=== PATIENT | male | born 1990 | race Caucasian/White ===

== ENCOUNTER 2019-01-31 15:38 | Emergency (ER) | payer OTHER ==
[~2019-01-31] VITALS: Ht 180.3 cm; Wt 109.0 kg
[2019-01-31] MEDS ORDERED: SODIUM CHLORIDE 0.9% 1,000 ML IV ONE (16:05)
[2019-01-31] MEDS ORDERED: OLANZAPINE 10 MG/VIAL IM ONE (16:15)
[2019-01-31] MEDS ORDERED: LORAZEPAM 2MG/ML CPJ IM ONE (16:15)
[2019-01-31 16:45] LABS: BASOPHILS % 0.4 % (0.0-2.0); EOSINOPHILS % 0.9 % (0.0-5.0); HEMATOCRIT. 42.5 % (42.0-52.0); HEMOGLOBIN. 14.2 g/dL (14.0-18.0); LYMPHOCYTES % 13.1 % (20.0-50.0); MEAN CORPUSCULAR HEMOGLOBIN 29.3 pg (28.0-32.0); MEAN CORPUSCULAR VOLUME 87.8 fL (80.0-94.0); MONOCYTES % 7.5 % (2.0-8.0); NEUTROPHILS % 78.1 % (40.0-76.0); PLATELET 327 x1000/uL (130-400); RED BLOOD CELL COUNT 4.84 mill/uL (4.7-6.1); RED CELL DISTRIBUTION WIDTH 14.7 % (11.6-14.6)
[2019-01-31 16:48] LABS: CHLORIDE 103 mEq/L (98-107)
[2019-01-31 16:51] LABS: ETHANOL BLOOD 58 mg/dL
[2019-01-31] MEDS ORDERED: FOLIC ACID 1 MG, THIAMINE HCL 100 MG, MVI, ADULT NO.1 10 ML in DEXTROSE 5% WATER 1,000 ML IV ONE ×4 (17:45)
[2019-01-31 22:16] LABS: METHADONE URINE SCREEN NEGATIVE (NEGATIVE)
[2019-01-31 22:17] LABS: *AMPHETAMINES SCREEN URINE PRESUMTIVE POSITIVE (NEGATIVE); *BARBITURATES SCREEN URINE NEGATIVE (NEGATIVE); *BENZODIAZEPINES SCREEN URINE NEGATIVE (NEGATIVE); *COCAINE SCREEN URINE NEGATIVE (NEGATIVE); CANNABINOID URINE SCREEN NEGATIVE (NEGATIVE); PHENCYCLIDINE URINE SCREEN NEGATIVE (NEGATIVE)
[2019-01-31 22:19] LABS: OPIATES URINE SCREEN NEGATIVE (NEGATIVE)
[2019-02-01] VITALS: BP 123/55
== END 2019-02-01 00:30 | disposition home or self-care (01) ==
LOC: ER 15:59
DX: T51.0X1A Toxic effect of ethanol, accidental (unintentional), initial encounter (principal); F10.129 Alcohol abuse with intoxication, unspecified; Y90.2 Blood alcohol level of 40-59 mg/100 ml; G92 Toxic encephalopathy; E16.2 Hypoglycemia, unspecified; F15.10 Other stimulant abuse, uncomplicated; F12.90 Cannabis use, unspecified, uncomplicated; F91.8 Other conduct disorders; Y92.480 Sidewalk as the place of occurrence of the external cause; Z78.1 Physical restraint status
CPT/HCPCS: 36415; 70450; 80048; 80305; 80307; 80320; 80329; 82962; 85025; 96365; 96372; 99284; J2060; J3411; J3490; J7030; J7070; G0480